=== PATIENT | male | born 1935 | race Caucasian/White ===

== ENCOUNTER 2017-05-03 15:35 | Inpatient (IN) ==
[2017-05-03] MEDS ORDERED: DILAUDID PO ONE (17:03)
[2017-05-03] MEDS ORDERED: ZOFRAN IV ONE ×2 (17:03→21:20)
[2017-05-03] MEDS ORDERED: DILAUDID IV ONE ×2 (17:09→17:15)
[2017-05-03 18:03] LABS: BASO% 0.2 % (0.0-0.8); EOS# 0.01 X1000 (0.0-0.7); EOS% 0.1 % (0.0-10.0); HEMATOCRIT 41.7 % (42.0-52.0); HEMOGLOBIN 13.4 g/dL (14.0-18.0); IMM GRAN# 0.04 X1000 (0.0-0.04); IMM GRAN% 0.4 % (0.0-0.5); LYMPH% 7.1 % (20.5-51.1); MANUAL DIFF NEEDED? NO; MCH 36.7 PG (27-31); MCHC 32.1 g/dL (33-37); MCV 114.2 FL (81-99); MONO# 0.45 X1000 (0.11-0.59); MONO% 4.6 % (1.7-9.3); MPV 10.4 FL (7.4-10.4); NEUT% 87.6 % (42.2-75.2); PLT 214 X1000 (130-400); RBC 3.65 XMIL (4.7-6.1)
[2017-05-03 18:14] LABS: AGAP 11; ALBUMIN 4.3 g/dL (3.5-5.0); ALKALINE PHOSPHATASE 76 U/L (32-122); BUN 13 mg/dL (8-22); CALCIUM 8.7 mg/dL (8.8-10.2); CHLORIDE 99 mmol/L (98-107); COSMO 276; GOT 27 U/L (10-34); GPT 20 U/L (10-44); POTASSIUM 4.7 mmol/L (3.5-5.1); SODIUM 138 mmol/L (136-145); TCO2 28 mmol/L (25-35); TOTAL BILIRUBIN 1.21 mg/dL (0.20-1.00); TOTAL PROTEIN 7.4 g/dL (6.3-8.3)
[2017-05-03 18:28] LABS: INR 1.86; PROTIME 20.3 Seconds (9.2-11.7)
[2017-05-03 19:05] LABS: URINE CULTURE NEEDED? NO; URINE MICRO REVIEW NEEDED? NO; URINE SOURCE CLEAN CATCH
[2017-05-03 19:12] LABS: BILIRUBIN URINE NEGATIVE (NEGATIVE); BLOOD URINE NEGATIVE (NEGATIVE); COLOR YELLOW; GLUCOSE URINE NEGATIVE (NEGATIVE); LEUKOCYTES URINE NEGATIVE (NEGATIVE); NITRITE URINE NEGATIVE (NEGATIVE); PH URINE 6.5; PROTEIN URINE TRACE mg/dL (NEGATIVE); SP GRAVITY URINE 1.014; TURBIDITY URINE CLEAR (CLEAR); UROBILINOGEN URINE NORMAL (NORMAL)
[2017-05-03 19:14] LABS: UR EPITHELIAL CELLS <10 /HPF (<10); URINE BACTERIA NEGATIVE /HPF; URINE RBC <10 /HPF (<10); URINE WBC <10 /HPF (<10)
[2017-05-03] MEDS ORDERED: G.I. COCKTAIL PO ONE (21:21)
[2017-05-03] MEDS ORDERED: SODIUM CHLORIDE 0.9% INJ ONE (21:22)
[2017-05-03] MEDS ORDERED: PROTONIX IV ONE (21:22)
[2017-05-03] MEDS: MORPHINE IV PRN (23:05)
[2017-05-03] MEDS ORDERED: NS 1,000 ML IV ONE (23:47)
[2017-05-03] MEDS ORDERED: TYLENOL PO PRN (23:47)
[2017-05-04] MEDS ORDERED: MORPHINE IV ONE (00:32)
[2017-05-04] MEDS: MORPHINE IV PRN ×4 (00:41→16:03)
[2017-05-04] MEDS ORDERED: ZOFRAN IV PRN (01:30)
[2017-05-04 06:21] LABS: BASO% 0.1 % (0.0-0.8); EOS# 0.02 X1000 (0.0-0.7); EOS% 0.3 % (0.0-10.0); HEMATOCRIT 40.6 % (42.0-52.0); HEMOGLOBIN 13.2 g/dL (14.0-18.0); LYMPH# 0.79 X1000 (1.2-3.4); LYMPH% 10.7 % (20.5-51.1); MANUAL DIFF NEEDED? NO; MCH 36.9 PG (27-31); MCHC 32.5 g/dL (33-37); MCV 113.4 FL (81-99); MONO# 0.46 X1000 (0.11-0.59); MONO% 6.2 % (1.7-9.3); MPV 10.2 FL (7.4-10.4); NEUT% 82.7 % (42.2-75.2); PLT 193 X1000 (130-400); RBC 3.58 XMIL (4.7-6.1)
[2017-05-04 06:22] LABS: INR 2.4; PROTIME 26.6 Seconds (9.2-11.7)
[2017-05-04 06:46] LABS: AGAP 10; ALBUMIN 3.8 g/dL (3.5-5.0); ALKALINE PHOSPHATASE 68 U/L (32-122); BUN 12 mg/dL (8-22); CALCIUM 8.8 mg/dL (8.8-10.2); CHLORIDE 101 mmol/L (98-107); COSMO 278; GOT 21 U/L (10-34); GPT 16 U/L (10-44); MAGNESIUM 1.9 mg/dL (1.5-2.7); POTASSIUM 4.1 mmol/L (3.5-5.1); SODIUM 139 mmol/L (136-145); TCO2 28 mmol/L (25-35); TOTAL BILIRUBIN 1.05 mg/dL (0.20-1.00); TOTAL PROTEIN 6.6 g/dL (6.3-8.3)
[2017-05-04] MEDS ORDERED: VITAMIN K 10 MG in NS 50 ML IV ONE (09:30)
[2017-05-04] MEDS: NORVASC PO SCH (10:21)
[2017-05-04] MEDS ORDERED: KEFZOL 2 GM/D5W 2 GM/50 ML IVPB IV ONE (17:10)
[2017-05-04] MEDS ORDERED: OXY IR PO PRN (17:18)
[2017-05-04] MEDS ORDERED: HALDOL IV PRN (17:21)
[2017-05-05] MEDS: MORPHINE IV PRN ×3 (04:06→20:47)
[2017-05-05 06:11] LABS: BASO% 0.3 % (0.0-0.8); EOS# 0.28 X1000 (0.0-0.7); EOS% 4.7 % (0.0-10.0); HEMOGLOBIN 11.9 g/dL (14.0-18.0); INR 1.04; LYMPH# 0.71 X1000 (1.2-3.4); MANUAL DIFF NEEDED? NO; MCH 36.3 PG (27-31); MCHC 32.2 g/dL (33-37); MCV 112.8 FL (81-99); MONO# 0.48 X1000 (0.11-0.59); MONO% 8.1 % (1.7-9.3); MPV 10.3 FL (7.4-10.4); NEUT% 74.9 % (42.2-75.2); PLT 186 X1000 (130-400); RBC 3.28 XMIL (4.7-6.1)
[2017-05-05 06:29] LABS: AGAP 10; BUN 13 mg/dL (8-22); CALCIUM 8.5 mg/dL (8.8-10.2); CHLORIDE 103 mmol/L (98-107); COSMO 279; POTASSIUM 4.1 mmol/L (3.5-5.1); SODIUM 140 mmol/L (136-145); TCO2 27 mmol/L (25-35)
[2017-05-05] MEDS ORDERED: TORADOL ONE (10:33)
[2017-05-05] MEDS ORDERED: CYKLOKAPRON 1,000 MG/NS 1,000 MG/100 ML IVPB ONE (10:33)
[2017-05-05] MEDS ORDERED: MARCAINE 0.25% PF ONE (10:33)
[2017-05-05] MEDS ORDERED: SODIUM CHLORIDE 0.9% ONE (10:33)
[2017-05-05] MEDS ORDERED: DURAMORPH ONE (10:33)
[2017-05-05] MEDS ORDERED: NEOSPORIN G.U. IRRIGANT ONE (10:34)
[2017-05-05] MEDS ORDERED: EXPAREL 1.3% ONE (10:34)
[2017-05-05] MEDS ORDERED: KEFZOL 2 GM/D5W 2 GM/50 ML IVPB ONE (11:52)
[2017-05-05] MEDS ORDERED: DIPRIVAN 1% ONE (11:54)
[2017-05-05] MEDS ORDERED: XYLOCAINE-MPF 2% ONE (11:55)
[2017-05-05] MEDS ORDERED: EPHEDRINE ONE (12:31)
[2017-05-05] MEDS ORDERED: FENTANYL ONE (12:35)
[2017-05-05] MEDS ORDERED: NS 1,000 ML ONE (13:56)
[2017-05-05 14:45] LABS: URINE MICRO REVIEW NEEDED? NO; URINE SOURCE CATH
[2017-05-05] MEDS: MORPHINE ONE ×2 (14:47→15:00)
[2017-05-05 14:55] LABS: BILIRUBIN URINE NEGATIVE (NEGATIVE); BLOOD URINE NEGATIVE (NEGATIVE); COLOR YELLOW; GLUCOSE URINE NEGATIVE (NEGATIVE); LEUKOCYTES URINE NEGATIVE (NEGATIVE); NITRITE URINE NEGATIVE (NEGATIVE); PH URINE 6.5; PROTEIN URINE TRACE mg/dL (NEGATIVE); SP GRAVITY URINE 1.016; TURBIDITY URINE CLEAR (CLEAR); UR EPITHELIAL CELLS <10 /HPF (<10); URINE BACTERIA NEGATIVE /HPF; URINE RBC <10 /HPF (<10); URINE WBC <10 /HPF (<10); UROBILINOGEN URINE NORMAL (NORMAL)
[2017-05-05] MEDS ORDERED: OXY IR PO PRN (15:28)
[2017-05-05] MEDS ORDERED: ZOFRAN IV PRN (15:29)
[2017-05-05] MEDS ORDERED: MILK OF MAGNESIA PO PRN (15:29)
[2017-05-05] MEDS: NS 1,000 ML IV SCH (20:43)
[2017-05-05] MEDS: KEFZOL 2 GM/D5W 2 GM/50 ML IVPB IV SCH (20:43)
[2017-05-06] MEDS: COLACE PO SCH ×3 (00:49→20:42)
[2017-05-06] MEDS: CELEBREX PO SCH ×3 (00:49→20:43)
[2017-05-06] MEDS: TYLENOL PO SCH ×6 (00:49→20:43)
[2017-05-06] MEDS: ULTRAM PO SCH ×6 (00:50→20:42)
[2017-05-06] MEDS: NS 1,000 ML IV SCH ×2 (01:30→06:55)
[2017-05-06] MEDS: MORPHINE IV PRN (02:14)
[2017-05-06] MEDS ORDERED: ZOFRAN IV PRN (03:42)
[2017-05-06] MEDS: KEFZOL 2 GM/D5W 2 GM/50 ML IVPB IV SCH (05:14)
[2017-05-06 05:49] LABS: HEMATOCRIT 33.4 % (42.0-52.0); HEMOGLOBIN 10.6 g/dL (14.0-18.0)
[2017-05-06 06:09] LABS: AGAP 6; BUN 14 mg/dL (8-22); CALCIUM 7.5 mg/dL (8.8-10.2); CHLORIDE 103 mmol/L (98-107); COSMO 280; POTASSIUM 4.3 mmol/L (3.5-5.1); SODIUM 140 mmol/L (136-145); TCO2 31 mmol/L (25-35)
[2017-05-06] MEDS: XARELTO PO SCH (06:55)
[2017-05-06] MEDS: NORVASC PO SCH (08:47)
[2017-05-06] MEDS: PERIDEX MT SCH ×2 (08:48→20:42)
[2017-05-07] MEDS: TYLENOL PO SCH ×4 (02:09→20:26)
[2017-05-07] MEDS: ULTRAM PO SCH ×4 (02:10→20:27)
[2017-05-07] MEDS: XARELTO PO SCH (06:00)
[2017-05-07 07:45] LABS: HEMATOCRIT 30.7 % (42.0-52.0); HEMOGLOBIN 9.9 g/dL (14.0-18.0)
[2017-05-07] MEDS: NORVASC PO SCH ×2 (09:51→09:52)
[2017-05-07] MEDS: COLACE PO SCH ×2 (09:54→20:27)
[2017-05-07] MEDS: PERIDEX MT SCH ×2 (09:54→20:27)
[2017-05-07] MEDS: CELEBREX PO SCH ×2 (09:54→20:27)
[2017-05-08] MEDS: ULTRAM PO SCH ×5 (01:47→14:43)
[2017-05-08] MEDS: TYLENOL PO SCH ×3 (01:47→14:43)
[2017-05-08] MEDS: XARELTO PO SCH (05:59)
[2017-05-08 06:05] LABS: HEMATOCRIT 30.6 % (42.0-52.0); HEMOGLOBIN 9.9 g/dL (14.0-18.0)
[2017-05-08] MEDS: CELEBREX PO SCH (10:52)
[2017-05-08] MEDS: COLACE PO SCH (10:54)
[2017-05-08] MEDS: NORVASC PO SCH (10:54)
[2017-05-08] MEDS: PERIDEX MT SCH (10:55)
[2017-05-08 12:11] VITALS: BP 144/60
== END 2017-05-08 16:26 ==
LOC: ED 15:35 → SUATTDRO 22:50 → 4N 22:50
PROVIDERS: ADMIT Internal Medicine; ATTEND Internal Medicine